=== PATIENT | female | born 1970 | race Caucasian/White ===

== ENCOUNTER → 2016-05-02 | Outpatient (REF) | payer BC ==
[~2016-05-02] MED LIST: NO HOME MEDS; TYLE325T5 PO
== END ==
LOC: M LAB REF 17:15
PROVIDERS: ATTEND Family Medicine
DX: Z12.4 Encounter for screening for malignant neoplasm of cervix (principal)

== ENCOUNTER → 2016-05-24 | Outpatient (CLI) | payer BC | LOC: M WUC 09:20 | PROVIDERS: ATTEND Family Medicine | DX: Z13.220 Encounter for screening for lipoid disorders (principal) ==

== ENCOUNTER → 2017-01-03 | Outpatient (CLI) | payer BC ==
[~2017-01-03] MED LIST changes: +CIPR-249 PO; +CYMB1CAP4 PO; +ZOFR4TAB3 PO
[2017-01-03 14:00] LABS: FREE T4 1.07 NG/DL (0.76-1.46)
== END ==
LOC: M WUC 08:30
PROVIDERS: ATTEND Family Medicine
DX: E55.9 Vitamin D deficiency, unspecified (principal); F32.1 Major depressive disorder, single episode, moderate

== ENCOUNTER 2017-02-10 06:03 | Emergency (ER) | payer BC ==
[~2017-02-10] VITALS: Ht 167.6 cm; Wt 77.3 kg
[~2017-02-10 06:03] MED LIST changes: -CIPR-249 PO; -CYMB1CAP4 PO; -ZOFR4TAB3 PO
[2017-02-10] MEDS ORDERED: CYMB1CAP4 PO (06:13)
[2017-02-10] MEDS ORDERED: NS 1,000 ML IV ONE ×2 (06:30→07:30)
[2017-02-10] MEDS ORDERED: DICYCLOMINE 10 MG CAP PO ONE (06:30)
[2017-02-10 06:49] LABS: BASO # 0.1 10^3/uL (0.0-0.2); BASO % 0.6 % (0.0-1.0); EOS # 0.1 10^3/uL (0.0-0.50); EOS % 0.6 % (0.0-3.0); IMMATURE GRANULOCYTE % 2.2 % (0-0); LYMPH # 1.4 10^3/uL (1.5-4.5); LYMPH % 14.2 % (24.0-44.0); MEAN CORPUSCULAR HEMOGLOBIN 28.1 pg (27.0-33.0); MEAN CORPUSCULAR HGB CONC 34.8 g/dl (32.0-36.5); MEAN CORPUSCULAR VOLUME 80.8 fl (80.0-96.0); MONO % 9.7 % (0.0-5.0); NEUTROPHILS # 7.2 10^3/uL (1.8-7.7); NEUTROPHILS % 72.7 % (36.0-66.0); PLATELET COUNT, AUTOMATED 306 10^3/uL (150-450); RED CELL DISTRIBUTION WIDTH 12.8 % (11.5-14.5); WHITE BLOOD COUNT 9.9 10^3/uL (4.0-10.0)
[2017-02-10 06:57] LABS: ALBUMIN 3.7 GM/DL (3.2-5.2); ALBUMIN/GLOBULIN RATIO 0.69 (1.00-1.93); ALKALINE PHOSPHATASE 91 U/L (45-117); ALT/SGPT 54 U/L (12-78); AMYLASE 36 U/L (25-115); ANION GAP 9 MEQ/L (8-16); AST/SGOT 28 U/L (7-37); BILIRUBIN,DIRECT 0.2 MG/DL (0.0-0.2); BILIRUBIN,TOTAL 0.8 MG/DL (0.2-1.0); BLOOD UREA NITROGEN 18 MG/DL (7-18); CALCIUM LEVEL 9.8 MG/DL (8.5-10.1); CARBON DIOXIDE LEVEL 25 MEQ/L (21-32); CHLORIDE LEVEL 101 MEQ/L (98-107); CREATININE FOR GFR 0.96 MG/DL (0.55-1.02); GLOMERULAR FILTRATION RATE > 60.0 (>58); GLUCOSE, FASTING 105 MG/DL (70-105); POTASSIUM SERUM 2.6 MEQ/L (3.5-5.1); SODIUM LEVEL 135 MEQ/L (136-145); TOTAL PROTEIN 9.1 GM/DL (6.4-8.2)
[2017-02-10] MEDS ORDERED: KCL 10MEQ IN 100ML SWI (KRUN) 10 MEQ in APPROPRIATE DILUENT 1 EA IV ONE ×2 (07:15)
[2017-02-10] MEDS ORDERED: POTASSIUM CHLORIDE 10 MEQ SR TABLET PO ONE (07:15)
[2017-02-10] MEDS ORDERED: KETOROLAC 30 MG/ML VIAL (J1885) IV ONE (07:30)
[2017-02-10] MEDS ORDERED: CIPR-249 PO (08:25)
[2017-02-10 09:09] VITALS: BP 129/72
[2017-02-10 10:10] LABS: ANION GAP 7 MEQ/L (8-16); BLOOD UREA NITROGEN 14 MG/DL (7-18); CALCIUM LEVEL 8.1 MG/DL (8.5-10.1); CARBON DIOXIDE LEVEL 25 MEQ/L (21-32); CHLORIDE LEVEL 109 MEQ/L (98-107); CREATININE FOR GFR 0.75 MG/DL (0.55-1.02); GLOMERULAR FILTRATION RATE > 60.0 (>58); GLUCOSE, FASTING 90 MG/DL (70-105); POTASSIUM SERUM 3.4 MEQ/L (3.5-5.1); SODIUM LEVEL 141 MEQ/L (136-145)
[2017-02-10] MEDS ORDERED: ZOFR4TAB3 PO (10:17)
== END 2017-02-10 10:30 | disposition home or self-care (01) ==
LOC: M ED 06:03
DX: A02.9 Salmonella infection, unspecified (principal); R19.7 Diarrhea, unspecified; F33.9 Major depressive disorder, recurrent, unspecified; Z79.899 Other long term (current) drug therapy

== ENCOUNTER → 2017-07-03 | Outpatient (CLI) | payer BC ==
[2017-07-03 09:52] LABS: BASO % 0.5 % (0.0-1.0); EOS # 0.2 10^3/uL (0.0-0.50); EOS % 2.5 % (0.0-3.0); HEMOGLOBIN 13.5 g/dl (12.0-15.5); IMMATURE GRANULOCYTE % 0.5 % (0-3.0); LYMPH # 2.7 10^3/uL (1.5-4.5); LYMPH % 45.3 % (24.0-44.0); MEAN CORPUSCULAR HEMOGLOBIN 28.4 pg (27.0-33.0); MEAN CORPUSCULAR HGB CONC 32.9 g/dl (32.0-36.5); MEAN CORPUSCULAR VOLUME 86.3 fl (80.0-96.0); MONO # 0.4 10^3/uL (0.0-0.8); MONO % 6.9 % (0.0-5.0); NEUTROPHILS # 2.7 10^3/uL (1.8-7.7); NEUTROPHILS % 44.3 % (36.0-66.0); PLATELET COUNT, AUTOMATED 276 10^3/uL (150-450); RED BLOOD COUNT 4.75 10^6/uL (4.00-5.40); RED CELL DISTRIBUTION WIDTH 12.8 % (11.5-14.5); WHITE BLOOD COUNT 6.1 10^3/uL (4.0-10.0)
[2017-07-03 10:19] LABS: ALBUMIN 3.9 GM/DL (3.2-5.2); ALBUMIN/GLOBULIN RATIO 1.15 (1.00-1.93); ALKALINE PHOSPHATASE 79 U/L (45-117); ALT/SGPT 28 U/L (12-78); ANION GAP 5 MEQ/L (8-16); AST/SGOT 15 U/L (7-37); BILIRUBIN,TOTAL 1.5 MG/DL (0.2-1.0); BLOOD UREA NITROGEN 13 MG/DL (7-18); CALCIUM LEVEL 8.8 MG/DL (8.5-10.1); CARBON DIOXIDE LEVEL 29 MEQ/L (21-32); CHLORIDE LEVEL 106 MEQ/L (98-107); CHOLESTEROL LEVEL 214 MG/DL (<200); CHOLESTEROL RISK RATIO 2.276 (<5); CREATININE FOR GFR 0.68 MG/DL (0.55-1.30); FREE T4 1.17 NG/DL (0.76-1.46); GLOMERULAR FILTRATION RATE > 60.0 (>58); GLUCOSE, FASTING 69 MG/DL (70-100); HDL CHOLESTEROL 94 MG/DL (>40); LDL CHOLESTEROL 108.4 MG/DL (<100); NON-HDL-C 120 MG/DL; POTASSIUM SERUM 4.8 MEQ/L (3.5-5.1); SODIUM LEVEL 140 MEQ/L (136-145); TOTAL PROTEIN 7.3 GM/DL (6.4-8.2); TRIGLYCERIDES LEVEL 58 MG/DL (<150)
[2017-07-03 11:10] LABS: TOTAL 25(OH) VITAMIN D 34.5 NG/ML (30.0-100.0)
== END ==
LOC: M WUC 08:22
DX: E55.9 Vitamin D deficiency, unspecified (principal); Z13.220 Encounter for screening for lipoid disorders; Z13.29 Encounter for screening for other suspected endocrine disorder; Z13.0 Encounter for screening for diseases of the blood and blood-forming organs and certain disorders involving the immune mechanism
CPT/HCPCS: 84443

== ENCOUNTER → 2020-03-07 | Outpatient (CLI) | payer SELFPAY ==
[~2020-03-07] MED LIST changes: +CIPR-249 PO; +CYMB1CAP4 PO; +ZOFR4TAB14 PO
== END ==
LOC: M LABSMTC 15:26
PROVIDERS: ATTEND Pediatrics
DX: Z11.59 Encounter for screening for other viral diseases (principal)

== ENCOUNTER 2020-09-07 17:08 | Emergency (ER) | payer BC, SELFPAY ==
[~2020-09-07] VITALS: Ht 167.6 cm; Wt 86.8 kg
[2020-09-07] MEDS ORDERED: FLUC150T PO (18:18)
[2020-09-07] MEDS ORDERED: MYCO15CR TOP (18:18)
[2020-09-07] MEDS ORDERED: NORCO, ANEXSIA 5/325MG TABLET (HYDROcodone/ACETAMINOPHEN) PO ONE (18:25)
[2020-09-07] MEDS ORDERED: VALA1TAB5 PO (18:37)
[2020-09-07] MEDS ORDERED: HYDR-4571 PO (18:37)
[2020-09-07 19:07] VITALS: BP 131/81
[2020-09-07 20:25] LABS: HEPATITIS B SURFACE ANTIBODY NEGATIVE (POSITIVE); HEPATITIS B SURFACE ANTIGEN NEGATIVE (NEGATIVE); HEPATITIS C VIRUS ABY INDEX < 0.0 INDEX (<0.8); HIV 1&2 SCREEN CENTAUR NEGATIVE (NEGATIVE)
== END 2020-09-07 19:46 | disposition home or self-care (01) ==
LOC: M ED 17:08
DX: A60.09 Herpesviral infection of other urogenital tract (principal); F32.9 Major depressive disorder, single episode, unspecified

== ENCOUNTER → 2021-03-03 | Outpatient (CLI) | payer BC ==
[~2021-03-03] MED LIST changes: +FLUC150T PO; +HYDR-4571 PO; +MYCO15CR TOP; +VALA1TAB5 PO
== END ==
LOC: M LABSMTC 09:10
PROVIDERS: ATTEND Anesthesiology
DX: Z01.812 Encounter for preprocedural laboratory examination (principal); Z20.822 Contact with and (suspected) exposure to COVID-19

== ENCOUNTER 2021-03-08 08:23 | Day surgery (SDC) | payer BC ==
[~2021-03-08] VITALS: Ht 167.6 cm; Wt 89.7 kg
[~2021-03-08 08:23] MED LIST changes: +NS 1,000 ML IV ONE
--- OUTSIDE RECORDS SUMMARY | 2021-03-08 08:26 | CCD | Continuity of Care Document ---
Author Author Addie LORENZ PA Organization Unknown Address [address] [facility], [address] [place] [address] Phone [phone] Care Team Providers Care Beamer Helper Name Role Phone AUTM Unavailable AUTM Unavailable Latasha MontgomeryO. AUTM [phone] Problems Active Problems Provider Date Gallbladder calculus with acute cholecystitis and no o bstruction Danilo Bruner M.D. Onset: 05/27/2012 Social History Type Date Description Comments Sex Female ETOH Use Occasionally consumes alcohol Tobacco Use Start: Unknown Non Smoker Recreational Drug Use Denies Drug Use Smoking Status Reviewed: 01/07/20 Non Smoker Allergies, Adverse Reactions, Alerts Description No Known Drug Allergies Medications Description No Active Medications Immunizations Description No Information Available Vital Signs Date Vital Result Comment 12/28/2020 10:52am BP Systolic 136 mmHg BP Diastolic 84 mmHg Body Temperature 98.2 F Height 66 inches 5'6" Weight 200.25 lb BMI (Body Mass Index) 32.3 kg/m2 [place] Body Weight 130 lb Weight 90.833 kg BSA (Body Surface Area) 2.00 m2 01/07/2020 10:41am BP Systolic 136 mmHg BP Diastolic 84 mmHg Heart Rate 80 /min Respiratory Rate 14 /min Body Temperature 97.2 F Height 66 inches 5'6" Weight 174.00 lb BMI (Body Mass Index) 28.1 kg/m2 [place] Body Weight 130 lb Weight 78.926 kg BSA (Body Surface Area) 1.88 m2 Results Description No Information Available Procedures Description No Information Available Medical Devices Description No Information Available Encounters Description No Information Available Assessments Description No Information Available Plan of Treatment No Information Available Functional Status Description No Information Available Mental Status Description No Information Available Referrals Refer to Reason for Referral Status Appt Date Juma Epperson JR, MD SCHED COLONOSCOPY Scheduled [address] [address] [phone]
--- OUTSIDE RECORDS SUMMARY | 2021-03-08 08:26 | CCD | Continuity of Care Document ---
Author Author Addie LORENZ PA Organization Unknown Address [address] [facility], [address] [place] [address] Phone [phone] Care Team Providers Care Strategic Advisor Name Role Phone AUTM Unavailable AUTM Unavailable Latasha MontgomeryO. AUTM Problems Active Problems Provider Date Gallbladder calculus with acute cholecystitis and no o bstruction Danilo Bruner M.D. Onset: 05/27/2012 Social History Type Date Description Comments Sex Female ETOH Use Occasionally consumes alcohol Tobacco Use Start: Unknown Non Smoker Recreational Drug Use Denies Drug Use Smoking Status Reviewed: 01/07/20 Non Smoker Allergies and adverse reactions Description No Known Drug Allergies Medications Description No Active Medications Immunizations Description No Information Available Vital Signs Date Vital Result Comment 12/28/2020 10:52am BP Systolic 136 mmHg BP Diastolic 84 mmHg Body Temperature 98.2 F Height 66 inches 5'6" Weight 200.25 lb BMI (Body Mass Index) 32.3 kg/m2 [place] Body Weight 130 lb Weight 90.833 kg BSA (Body Surface Area) 2.00 m2 01/07/2020 10:41am BP Systolic 136 mmHg BP Diastolic 84 mmHg Heart Rate 80 /min Respiratory Rate 14 /min Body Temperature 97.2 F Height 66 inches 5'6" Weight 174.00 lb BMI (Body Mass Index) 28.1 kg/m2 [place] Body Weight 130 lb Weight 78.926 kg BSA (Body Surface Area) 1.88 m2 Results Description No Information Available Procedures Date Code Description Status 12/28/2020 60101 Office/Outpatient New [facility] 15- 29 Minutes Completed Medical Devices Description No Information Available Encounters Type Date Location Provider Dx Diagnosis Office Visit 12/28/2020 11:15a [facility] MARIE Malagon Z12.11 Encounter for screening for malignant ne oplasm of colon Assessments Date Code Description Provider 12/28/2020 Z12.11 Encounter for screening for nusrat gnant neoplasm of colon MARIE Ward Plan of Treatment Future Appointment(s):* 03/19/2021 9:00 am - MARIE Ward at [facility] * 03/08/2021 8:00 am - Juma Epperson JR, MD at [facility] 12/28/2020 - MARIE Ward* Z12.11 Encounter for screening for malignant neoplasm of colon Functional Status Description No Information Available Mental Status Description No Information Available Referrals Refer to Dr Reason for Referral Status Appt Date Juma Epperson JR, MD SCHED COLONOSCOPY Scheduled [address] [place] [address] [phone]
--- OUTSIDE RECORDS SUMMARY | 2021-03-08 08:26 | CCD | Continuity of Care Document ---
Author Author Addie MONTGOMERY D.O. Organization Unknown Address [address] [place] [address] Phone [phone] Care Team Providers Care Loan Servicing Representative Name Role Phone Latasha Montgomery D.O. AUTM [phone] Ioana Gallardo DO AUTM [phone] Juma Epperson M.D. AUTM [phone] Problems Active Problems Provider Date Moderate major depression, single episode Latasha dias D.O. Onset: 03/18/2016 Aphasia Latasha Montgomery D.O. Onset: 2015 Vitamin D deficiency Latasha Montgomery D.O. Onset: 04/18 Screening mammography Latasha Montgomery D.O. Onset: 03/31 Obesity Latasha Montgomery D.O. Onset: 2016 Body mass index 30+ - obesity Latasha Montgomery D.O. Ons et: 04/18/2016 Hyperlipidemia screening Latasha Montgomery D.O. Onset: 0 04/18/2016 Gynecologic examination Latasha Montgomery D.O. Onset: Active or passive immunization Latasha Montgomery D.O. On set: 05/02/2016 Overweight Latasha Montgomery D.O. Onset: 2016 Body mass index 25-29 - overweight Yordy Sellers Onset: 07/25/2016 Social History Type Date Description Comments Sex Unknown ETOH Use Denies alcohol use Tobacco Use Start: Unknown Patient has never smoked Recreational Drug Use Denies Drug Use Smoking Status Reviewed: 12/18/20 Patient has never smoked Exercise Type/Frequency Does not exercise Sun Exposure Does not use sunscreen Seat Belt/Car Seat Always uses seat belt Allergies, Adverse Reactions, Alerts Description No Known Drug Allergies Medications Active Medications SIG Qnty Indications Ordering Provide r Date Valacyclovir HCL 1gm Tablets take 1 tablet by mouth twice daily for 1 day 12tabs Katia RojasOLori History Medications Eq Lidocaine Pain Relieving/Max Strength 4% Cream apply thin layer to topical area of vagi na every 8 hours as needed for pain 76.500gm Latasha Montgomery D.O. 09/07 - 09/13/2020 Fluconazole 150mg Tablets 1 tablet then repeat in 3 days if symptoms not improved 2tabs B37.3 Katia SellersOLori 09/05/2020 - 09/13/2020 Nystatin-Triamcinolone 110249-6.1Unit/GM-% Cream apply thin layer topically externally on rash vaginal area twice daily for no more than 7 days 30gm B37.3 Katia SellersO. 0 09/05/2020 - 09/13/2020 Medications Administered in Office Medication SIG Qnty Indications Ordering Provider Date Immunization Administration Single Or Co mbination Injection Karla Sellers 05/02/2016 Immunizations CPT Code Status Date Vaccine Lot # [id number] Given 05/02/2016 Influenza Virus Vaccine, Quadrivalent, Split, Preservative Free [id number] Vital Signs Date Vital Result Comment 12/18/2020 2:31pm BP Systolic 138 mmHg BP Diastolic 88 mmHg Height 64.7 inches 5'4.70" Weight 200.38 lb BMI (Body Mass Index) 33.7 kg/m2 Heart Rate 76 /min Respiratory Rate 14 /min Body Temperature 98.0 F O2 % BldC Oximetry 98 % [place] Body Weight 120 lb 09/13/2020 2:42pm BP Systolic 110 mmHg BP Diastolic 74 mmHg Height 64.7 inches 5'4.70" Weight 193.00 lb BMI (Body Mass Index) 32.4 kg/m2 Heart Rate 64 /min Respiratory Rate 20 /min Body Temperature 98.2 F O2 % BldC Oximetry 97 % [place] Body Weight 120 lb Results Test Acquired Date Facility Test Result H/L Range Note Thinprep Tis Pap And HPV Mrna E6/E7, Chlamydia/N.G [facility] Report Status: DNR Normal Clinical Information: (SEE NOTE) Normal 1 LMP: (SEE NOTE) Normal 2 Prev. Pap: (SEE NOTE) Normal 3 Prev. BX: (SEE NOTE) Normal 4 Source: (SEE NOTE) Normal 5 Statement Of Adequacy: (SEE NOTE) Normal 6 General Categorization: DNR Normal Interpretation/Result: (SEE NOTE) Normal 7 Infection: DNR Normal Comment: (SEE NOTE) Normal 8 Principal Clerk: (SEE NOTE) Normal 9 Review Principal Clerk: DNR Normal Pathologist: DNR Normal Comment (SEE NOTE) 10 HPV mRNA E6/E7 Not Detected Normal Not Detected 11 Chlamydia Trachomatis Rna, Tma, Urogenital NOT DETECTED Normal Not Detected Neisseria Gonorrhoeae Rna, Tma, Urogenital NOT DETECTED Normal Not Detected Comment (SEE NOTE) 12 Laboratory test finding 12/18/2020 [facility] Enhanced PDF Report [id number] SEE IMAGE Ua W/ Reflex To Culture 09/07/2020 [facility] Outpatient T hector (Registration) [address] [place] [address] [phone] Appearance, Urine RFX HAZY Normal Clear Color, Urine RFX YELLOW Normal Yellow PH,Urine RFX 5.0 units Normal 5.0-9.0 Specific [place] Ur Auto RFX 1.016 Normal 1.002-1.035 Protein, Urine Auto RFX NEGATIVE mg/dL Normal Negative Glucose, Urine (Ua) Auto RFX NEGATIVE mg/dL Normal Negative Ketone, Urine Auto RFX NEGATIVE mg/dL Normal Negative Urobilinogen, Urine Auto RFX 0.2 mg/dL Normal 0.0-2.0 Bilirubin, Urine Auto RFX NEGATIVE Normal Negative Nitrite, Urine Auto RFX NEGATIVE Normal Negative Leukocyte Esterase Ur Auto RFX 2+ High Negative Blood, Urine Blood RFX 1+ High Negative WBC, Urine Auto RFX 6 /HPF High 0-3 RBC, Urine Auto RFX 2 /HPF Normal 0-3 Bacteria, Urine Auto RFX 1+ High Negative Squam Epithelial Cell Ur Aurfx 1 /HPF Normal 0-6 Hyaline Cast, Urine Auto RFX 0 /LPF Normal 0-1 Reflex Urine Culture 09/07/2020 [facility] Outpatient Test ing (Registration) [address] [place] [address] [phone] Reflex Urine Culture FULL REPORT IN L <SEE NOTE> Norm al 13 Laboratory test finding 09/07/2020 [facility] Outpatient T esting (Registration) [address] [place] [address] [phone] Trichomonas Vaginalis Amp NOT DETECTED Normal Neg ative 14 Chlamydia/GC Probe 09/07/2020 [facility] Outpatient Testi ng (Registration) [address] [place] [address] [phone] Chlamydia Dna Probe Negative Normal Negative GC Dna Probe Negative Normal Negative 15 Laboratory test finding 09/07/2020 [facility] Outpatient T esting (Registration) [address] [place] [phone] Hepatitis C Virus Lorelei Index < 0.0 INDEX Normal <0. 8 Hepatitis B Surface Antigen NEGATIVE Normal Negative Hepatitis B Surface Antibody NEGATIVE Normal Positive Syphilis NONREACTIVE Normal Nonreactive HIV 1&2 Screen [place] NEGATIVE Normal Negative 16 HSV 1/2 By PCR 09/07/2020 [facility] Outpatient Testi ng (Registration) [address] [place] [address] [phone] HSV-1 Dna Negative Normal Negative HSV-2 Dna Negative Normal Negative 17 Wet [place] Trichomonas 09/07/2020 [facility] Outpatient Nela ting (Registration) [address] [place] [address] [phone] Wet Prep Reference Interv <SEE NOTE> 18 Laboratory test finding 09/07/2020 [facility] Outpatient T esting (Registration) [address] [place] [address] [phone] Viral Culture Positive for Her <SEE NOTE> 19 1 None given 2 None given 3 None given 4 None given 5 Cervix, Endocervix 6 Satisfactory for evaluation. Endocervical/transformation zone component present. 7 Negative for intraepithelial lesion or malignancy. 8 This Pap test has been evalu ated with computer assisted technology. 9 BH, CT(ASCP) CT screening lo cation: [employer] [place], [address], [place] [address]. 10 EXPLANATORY NOTE: The Pap is a screening test for cervical cancer. It is not a diagnostic test and is subject to false negative and false positive results. It is most reliable when a satisfactory sample, regularly obtained, is submitted with relevant clinical findings and history, and when the Pap result is evaluated along with historic and current clinical information. 11 Methodology: Harness Maker-M ediated Amplification This assay detects E6/E7 viral messenger RNA (mRNA) from 14 high-risk HPV types (16,18,31,33,35,39,45,51,52,56,58,59,66,68). The analytical performance characteristics of this assay have been determined by [employer] The modifications have not been cleared or approved by the FDA. This assay has been validated pursuant to the CLIA regulations and is used for clinical purposes. For additional information, please refer to http://Talkbits.NetScientific/faq/JZS262e0 (This link if provided for information/ educational purposes only.) 12 The analytical performance c haracteristics of this assay, when used to test SurePath(TM) specimens have been determined by [employer] The modifications have not been cleared or approved by the FDA. This assay has been validated pursuant to the CLIA regulations and is used for clinical purposes. For additional information, please refer to https://Talkbits.NetScientific/faq/QFT633 (This link is being provided for informa tion/ educational purposes only.) 13 FULL REPORT IN LAB NOTES (eC W and [employer]). NO GROWTH CLINICAL SIGNIFICANCE 1 ORGANISM 14 A negative test result does not exclude the possibility of infection because test results may be affected by improper specimen collection, technical error, sample mix-up, or because the number of organisms in the sample is below the limit of detection of the test. 15 Performed at: - [facility] [id number] Construction Inspector: Isabel Vasquez MD, Phone: [phone] 16 This assay was performed uti lizing a chemiluminescent principle technique for the simultaneous qualitative detection of HIV-1 p24 antigen & antibodies to HIV-1 (including group O) & HIV-2 using the [employer] system. The estimated 95% confidence interval for sensitivity of this antigen/antibody combination assay for HIV-1&2 antibodies is 99.7-100% and HIV p24 antigen is 89.4-99.9%. The estimated 95% confidence interval for specificity of this antigen/antibody combination in low risk populations is 99.6-99.8%. 17 This test was developed and its performance characteristics determined by [employer]. It has not been cleared or approved by the U.S. Food and Drug Administration. The FDA has determined that such clearance or approval is not necessary. This test is used for clinical purposes. It should not be regarded as investigational or research. Performed at: [address] [id number] Construction Inspector: Ann Romero MD, Phone: [phone] Reference Interval: Negative for Clue Cells, Trichomonas vaginalis or Yeast like organisms. WET PREP RESULT MANY EPITHELIAL CELLS PRESENT MANY LONG RODS PRESENT FEW WBC 19 Positive for Herpes simplex virus type-1. Typing was confirmed by monoclonal antibody microscopic immunofluorescence. Performed at: [address] [id number] Construction Inspector: Ann Romero MD, Phone: [phone] Procedures Date Code Description Status 12/18/2020 38653 Preventive Visit Est 40-64 Yrs C ompleted 09/13/2020 02140 Office/Outpatient Established Lo w MDM 20-29 Min Completed 09/05/2020 06766 Office/Outpatient Established Lo w MDM 20-29 Min Completed Medical Devices Description No Information Available Encounters Type Date Location Provider Dx Diagnosis Office Visit 12/18/2020 2:30p [facility] Katia LaraOLori Z01.419 Encntr for adult care manager exam (general ) (routine) w/o abn findings Z11.3 Encntr screen for infections w sexl mode of transmiss Z12.31 Encntr screen mammogram for malignant neoplasm of breast Z12.11 Encounter for screening for malignant neoplasm of colon 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 B37.3 Candidiasis of vulva and vag gómez Assessments Date Code Description Provider 12/18/2020 Z01.419 Encounter for gyneco logical examination (general) (routine) without abnormal findings Latasha Montgomery D.O. 12/18/2020 Z11.3 Encounter for screen ing for infections with a predominantly sexual mode of transmission Latasha Montgomery D.O. 12/18/2020 Z12.31 Encounter for screen ing mammogram for malignant neoplasm of breast Latasha Montgomery D.O. 12/18/2020 Z12.11 Encounter for screening for nusrat gnant neoplasm of colon Latasha Montgomery D.O. 12/18/2020 A60.00 Herpesviral infection of urogeni lisa system, unspecified Latasha Montgomery D.O. 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 09/05/2020 B37.3 Candidiasis of vulva and vagina Latasha Montgomery D.O. Plan of Treatment Future Appointment(s):* 06/18/2021 3:30 pm - Latasha Montgomery D.O. at [facility] Functional Status Description No Information Available Mental Status Description No Information Available Referrals Refer to Dr Reason for Referral Status Appt Date Juma Epperson M.D. This is a 50 year old female who is due for screening colonoscopy. Please evaluate and treat. Sent [address] [address] [phone]
--- OUTSIDE RECORDS SUMMARY | 2021-03-08 08:26 | CCD | Continuity of Care Document ---
Author Author Addie MONTGOMERY D.O. Organization Unknown Address [address] [place] [address] Phone [phone] Care Team Providers Care Mountain Guide Name Role Phone Latasha Montgomery D.O. AUTM Ioana Gallardo AUTM [phone] Problems Active Problems Provider Date Moderate major depression, single episode Latasah dias D.O. Onset: 03/18/2016 Aphasia Latasha Montgomery [...] 8 hours as needed for pain 76.500gm Katia SellersOLori 09/07 - 09/13/2020 Fluconazole 150mg Tablets 1 tablet then repeat in 3 days if symptoms not improved 2tabs B37.3 Katia SellersO. 09/05/2020 - 09/13/2020 Nystatin-Triamcinolone 039953-2.1Unit/GM-% Cream apply thin layer topically externally on rash vaginal area twice daily for no more than 7 days 30gm B37.3 Latasha Montgomery D.O. 0 09/05/2020 - 09/13/2020 Medications Administered in Office Medication SIG Qnty Indications Ordering Provider Date Immunization Administration Single Or Co mbination Injection Karla SellersOLori 05/02/2016 Immunizations CPT Code Status Date Vaccine Lot # [id number] Given 05/02/2016 Influenza Virus Vaccine, Quadrivalent, Split, Preservative Free [id number] Vital Signs Date Vital Result Comment 12/18/2020 2:31pm BP Systolic 138 mmHg BP Diastolic 88 mmHg Height 64.7 inches 5'4.70" Weight 200.38 lb BMI (Body Mass Index) 33.7 kg/m2 Heart Rate 76 /min Respiratory Rate 14 /min Body Temperature 98.0 F O2 % BldC Oximetry 98 % [place] Body Weight 120 lb 09/13/2020 2:42pm BP Systolic 110 mmHg BP Diastolic 74 mmHg Height 64.7 inches 5'4.70" Weight 193.00 lb BMI (Body Mass Index) 32.4 kg/m2 Heart Rate 64 /min Respiratory Rate 20 /min Body Temperature 98.2 F O2 % BldC Oximetry 97 % [place] Body Weight 120 lb Results Test Acquired Date Facility Test Result H/L Range Note Ua W/ Reflex To Culture 09/07/2020 [facility] Outpatient T esting (Registration) [address] [place] [address] [phone] Appearance, Urine RFX HAZY Normal Clear Color, Urine RFX YELLOW Normal Yellow PH,Urine RFX 5.0 units Normal 5.0-9.0 Specific [place] Ur Auto RFX 1.016 Normal 1.002-1.035 Protein, [...] /LPF Normal 0-1 Reflex Urine Culture 09/07/2020 [facility] Outpatient Test ing (Registration) [address] [place] [address]594 [phone] Reflex Urine Culture FULL REPORT IN L <SEE NOTE> Norm al 1 Laboratory test finding 09/07/2020 [facility] Outpatient T esting (Registration) [address] [place] [address]90 [phone] Trichomonas Vaginalis Amp NOT DETECTED Normal Neg ative 2 Chlamydia/GC Probe 09/07/2020 [facility] Outpatient Testi ng (Registration) [address] [place] [address] [phone] Chlamydia Dna Probe Negative Normal Negative GC Dna Probe Negative Normal Negative 3 Laboratory test finding 09/07/2020 [facility] Outpatient T esting (Registration) [address] [place] [address] 11971 [phone] Hepatitis C Virus Lorelei Index < 0.0 INDEX Normal <0. 8 Hepatitis B Surface Antigen NEGATIVE Normal Negative Hepatitis B Surface Antibody NEGATIVE Normal Positive Syphilis NONREACTIVE Normal Nonreactive HIV 1&2 Screen Centaur NEGATIVE Normal Negative 4 HSV 1/2 By PCR 09/07/2020 [facility] Outpatient Testi ng (Registration) [address] [place], [place] [id number] [phone] HSV-1 Dna Negative Normal Negative HSV-2 Dna Negative Normal Negative 5 Wet [place] Trichomonas 09/07/2020 [facility] Outpatient Nela ting (Registration) [address] [place] [address] [phone] Wet Prep Reference Interv <SEE NOTE> 6 Laboratory test finding 09/07/2020 [facility] Outpatient T esting (Registration) [address] [place] [address] [phone] Viral Culture Positive for Her <SEE NOTE> 7 1 FULL REPORT IN LAB NOTES (eC W and Medent). NO GROWTH CLINICAL SIGNIFICANCE 1 ORGANISM 2 A negative test result does not exclude the possibility of infection because test results may be affected by improper specimen collection, technical error, sample mix-up, or because the number of organisms in the sample is below the limit of detection of the test. 3 Performed at: [address] [id number] Assistant Professor Of Biochemistry: Isabel Vasquez MD, Phone: [phone] This assay was performed uti lizing a chemiluminescent principle technique for the simultaneous qualitative detection of HIV-1 p24 antigen & antibodies to HIV-1 (including group O) & HIV-2 using the Intersect ENTaur XP system. The estimated 95% confidence interval for sensitivity of this antigen/antibody combination assay for HIV-1&2 antibodies is 99.7-100% and HIV p24 antigen is 89.4-99.9%. The estimated 95% confidence interval for specificity of this antigen/antibody combination in low risk populations is 99.6-99.8%. 5 This test was developed and its performance characteristics determined by [employer]. It has not been cleared or approved by the U.S. Food and Drug Administration. The FDA has determined that such clearance or approval is not necessary. This test is used for clinical purposes. It should not be regarded as investigational or research. Performed at: [address] [id number] Assistant Professor Of Biochemistry: Ann Romero MD, Phone: [phone] Reference Interval: Negative for Clue Cells, Trichomonas vaginalis or Yeast like organisms. WET PREP RESULT MANY EPITHELIAL CELLS PRESENT MANY LONG RODS PRESENT FEW WBC 7 Positive for Herpes simplex virus type-1. Typing was confirmed by monoclonal antibody microscopic immunofluorescence. Performed at: [address] [id number] Assistant Professor Of Biochemistry: Ann Romero MD, Phone: [phone] Procedures Date Code Description Status 12/18/2020 07917 Preventive Visit Est 40-64 Yrs C ompleted 09/13/2020 50220 Office/Outpatient Established Lo w MDM 20-29 Min Completed 09/05/2020 33992 Office/Outpatient Established Lo w MDM 20-29 Min Completed Medical Devices Description No Information Available Encounters Type Date Location Provider Dx Diagnosis Office Visit 12/18/2020 2:30p [facility] Clyde Montgomery D.O. 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 Plan of Treatment Future Appointment(s):* 06/18/2021 3:30 pm - Latasha Montgomery D.O. at [facility] Functional Status Description No Information Available Mental Status Description No Information Available Referrals Refer to Reason for Referral Status Appt Date Juma Epperson M.D. This is a 50 year old female who is due for screening colonoscopy. Please evaluate and treat. Created [address] [id number] [phone]
--- OUTSIDE RECORDS SUMMARY | 2021-03-08 08:26 | CCD | Continuity of Care Document ---
Author Author Addie MONTGOMERY D.O. Organization Unknown Address [address] [place] [address] Phone [phone] Care Team Providers Care Biological Photographer Name Role Phone Latasha Montgomery D.O. AUTM Ioana Gallardo AUTM [phone] Problems Active Problems Provider Date Moderate major [...] B37.3 Katia SellersO. 09/05/2020 - 09/13/2020 Nystatin-Triamcinolone 882762-2.1Unit/GM-% Cream apply thin layer topically externally on rash vaginal area twice daily for no more than 7 days 30gm B37.3 Latasha Montgomery D.O. 0 09/05/2020 - 09/13/2020 Medications Administered in Office Medication SIG Qnty Indications Ordering Provider Date Immunization Administration Single Or Co mbination Injection Karla SellersOLori 05/02/2016 Immunizations CPT Code Status Date Vaccine Lot # [id number] Given 05/02/2016 Influenza Virus Vaccine, Quadrivalent, Split, Preservative Free [id number] Vital Signs Date Vital Result Comment 12/18/2020 2:31pm BP Systolic 138 mmHg BP Diastolic 88 mmHg Height 64.7 inches 5'4.70" Weight 200.38 lb BMI (Body Mass Index) 33.7 kg/m2 Heart Rate 76 /min Respiratory Rate 14 /min Body Temperature 98.0 F O2 % BldC Oximetry 98 % [place] Body Weight 120 lb 09/13/2020 2:42pm BP Systolic 110 mmHg BP Diastolic 74 mmHg Height 64.7 inches 5'4.70" Weight 193.00 lb BMI (Body Mass Index) 32.4 kg/m2 Heart Rate 64 /min Respiratory Rate 20 /min Body Temperature 98.2 F O2 % BldC Oximetry 97 % [place] Body Weight 120 lb Results Test Acquired Date Facility Test Result H/L Range Note Ua W/ Reflex To Culture 09/07/2020 [facility] Outpatient T esting (Registration) [address] [place] [address] 15516 [phone] Appearance, Urine RFX HAZY Normal Clear Color, Urine RFX YELLOW Normal Yellow PH,Urine RFX 5.0 units Normal 5.0-9.0 Specific [place] Ur Auto RFX 1.016 Normal 1.002-1.035 Protein, [...] /LPF Normal 0-1 Reflex Urine Culture 09/07/2020 [facility] Outpatient Test ing (Registration) [address] [place] [address] [phone] Reflex Urine Culture FULL REPORT IN L <SEE NOTE> Norm al 1 Laboratory test finding 09/07/2020 [facility] Outpatient T esting (Registration) [address] [place] [address]23 [phone] Trichomonas Vaginalis Amp NOT DETECTED Normal Neg ative 2 Chlamydia/GC Probe 09/07/2020 [facility] Outpatient Testi ng (Registration) [address] [place] [address]310 [phone] Chlamydia Dna Probe Negative Normal Negative GC Dna Probe Negative Normal Negative 3 Laboratory test finding 09/07/2020 [facility] Outpatient T esting (Registration) [address] [place] [address]70 [phone] Hepatitis C Virus Lorelei Index < 0.0 INDEX Normal <0. 8 Hepatitis B Surface Antigen NEGATIVE Normal Negative Hepatitis B Surface Antibody NEGATIVE Normal Positive Syphilis NONREACTIVE Normal Nonreactive HIV 1&2 Screen Centaur NEGATIVE Normal Negative 4 HSV 1/2 By PCR 09/07/2020 [facility] Outpatient Testi ng (Registration) [address] [place], [place] [phone] HSV-1 Dna Negative Normal Negative HSV-2 Dna Negative Normal Negative 5 Wet [place] Trichomonas 09/07/2020 [facility] Outpatient Nela ting (Registration) [address] [place] [address] [phone] Wet Prep Reference Interv <SEE NOTE> 6 Laboratory test finding 09/07/2020 [facility] Outpatient T esting (Registration) [address] [place] [address] [phone] Viral Culture Positive for Her <SEE NOTE> [...] detection of the test. 3 Performed at: [address] [id number] Glaze Mixer: Isabel Vasquez MD, Phone: [phone] This assay was performed uti lizing a chemiluminescent principle technique for the simultaneous qualitative detection of HIV-1 p24 antigen & antibodies to HIV-1 (including group O) & HIV-2 using the [employer]aur XP system. The estimated 95% confidence interval for sensitivity of this antigen/antibody combination assay for HIV-1&2 antibodies is 99.7-100% and HIV p24 antigen is 89.4-99.9%. The estimated 95% confidence interval for specificity of this antigen/antibody combination in low risk populations is 99.6-99.8%. 5 This test was developed and its performance characteristics determined by [employer]. It has not been cleared or approved by the U.S. Food and Drug Administration. The FDA has determined that such clearance or approval is not necessary. This test is used for clinical purposes. It should not be regarded as investigational or research. Performed at: [address] [id number] Glaze Mixer: Ann Romero MD, Phone: [phone] Reference Interval: Negative for Clue Cells, Trichomonas vaginalis or Yeast like organisms. WET PREP RESULT MANY EPITHELIAL CELLS PRESENT MANY LONG RODS PRESENT FEW WBC 7 Positive for Herpes simplex virus type-1. Typing was confirmed by monoclonal antibody microscopic immunofluorescence. Performed at: [address] [id number] Glaze Mixer: Ann Romero MD, Phone: [phone] Procedures Date Code Description Status 12/18/2020 76525 Preventive Visit Est 40-64 Yrs C ompleted 09/13/2020 28817 Office/Outpatient Established Lo w MDM 20-29 Min Completed 09/05/2020 51979 Office/Outpatient Established Lo w MDM 20-29 Min Completed Medical Devices Description No Information Available Encounters Type Date Location Provider Dx Diagnosis Office Visit 12/18/2020 2:30p [facility] Clyde Montgomery D.O. 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 B37.3 Candidiasis [...] of urogeni lisa system, unspecified Karla Sellers.OLori 09/05/2020 B37.3 Candidiasis of vulva and vagina [...] colonoscopy. Please evaluate and treat. Created [address] [id number] [phone]
--- OUTSIDE RECORDS SUMMARY | 2021-03-08 08:27 | CCD ---
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 Name Role Phone Maring, Johnathon PA Unavailable Unavailable Maring, Johnathon PA Unavailable Unavailable Maring, Johnathon PA Unavailable Unavailable Maring, Johnathon PA Unavailable Unavailable Maring, Johnathon PA Unavailable Unavailable Maring, Johnathon PA Unavailable Unavailable Maring, Johnathon PA Unavailable Unavailable Maring, Johnathon PA Unavailable Unavailable Maring, Johnathon PA Unavailable Unavailable Maring, Johnathon PA Unavailable Unavailable Maring, Johnathon PA Unavailable Unavailable Maring, Johnathon PA Unavailable Unavailable Maring, Johnathon PA Unavailable Unavailable Maring, Johnathon PA Unavailable Unavailable Maring, Johnathon PA Unavailable Unavailable Maring, Johnathon PA Unavailable Unavailable CLEMENTE-BERONICA, JANESSA DO Unavailable Unavailable CLEMENTE-BERONICA, JANESSA DO Unavailable Unavailable CLEMENTE-BERONICA, JANESSA DO Unavailable Unavailable CLEMENTE-BERONICA, JANESSA DO Unavailable Unavailable CLEMENTE-BERONICA, JANESSA DO Unavailable Unavailable CLEMENTE-BERONICA, JANESSA DO Unavailable Unavailable CLEMENTE-BERONICA, JANESSA DO Unavailable Unavailable CLEMENTE-BERONICA, JANESSA DO Unavailable Unavailable CLEMENTE-BERONICA, JANESSA DO Unavailable Unavailable CLEMENTE-BERONICA, JANESSA DO Unavailable Unavailable CLEMENTE-BERONICA, JANESSA DO Unavailable Unavailable CLEMENTE-BERONICA, JANESSA DO Unavailable Unavailable CLEMENTE-BERONICA, JANESSA DO Unavailable Unavailable CLEMENTE-BERONICA, JANESSA DO Unavailable Unavailable CLEMENTE-BERONICA, JANESSA DO Unavailable Unavailable CLEMENTE-BERONICA, JANESSA DO Unavailable Unavailable CLEMENTE-BERONICA, JANESSA DO Unavailable Unavailable CLEMENTE-BERONICA, JANESSA DO Unavailable Unavailable CLEMENTE-BERONICA, JANESSA DO Unavailable Unavailable CLEMENTE-BERONICA, JAENSSA DO Unavailable Unavailable CLEMENTE-BERONICA, JANESSA DO Unavailable Unavailable CLEMENTE-EBRONICA, JANESSA DO Unavailable Unavailable CLEMENTE-BERONICA, JANESSA DO Unavailable Unavailable CLEMENTE-BERONICA, JANESSA DO Unavailable Unavailable CLEMENTE-BERONICA, JANESSA DO Unavailable Unavailable CLEMENTE-BERONICA, JANESSA DO Unavailable Unavailable CLEMENTE-BERONICA, JANESSA DO Unavailable Unavailable CLEMENTE-BERONICA, JANESSA DO Unavailable Unavailable CLEMENTE-BERONICA, JANESSA DO Unavailable Unavailable CLEMENTE-BERONICA, JANESSA DO Unavailable Unavailable CLEMENTE-BERONICA, JANESSA DO Unavailable Unavailable CLEMENTE-BERONICA, JANESSA DO Unavailable Unavailable CLEMENTE-BERONICA, JANESSA DO Unavailable Unavailable CLEMENTE-BERONICA, JANESSA DO Unavailable Unavailable CLEMENTE-BERONICA, JANESSA DO Unavailable Unavailable CLEMENTE-BERONICA, JANESSA DO Unavailable Unavailable CLEMENTE-BERONICA, JANESSA DO Unavailable Unavailable CLEMENTE-BERONICA, JANESSA DO Unavailable Unavailable CLEMENTE-BERNOICA, JANESSA DO Unavailable Unavailable CLEMENTE-BERONICA, JANESSA DO Unavailable Unavailable CLEMENTE-BERONICA, JANESSA DO Unavailable Unavailable CLEMENTE-BERONICA, JANESSA DO Unavailable Unavailable CLEMENTE-BERONICA, JANESSA DO Unavailable Unavailable CLEMENTE-BERONICA, JANESSA DO Unavailable Unavailable CLEMENTE-BERONICA, JANESSA DO Unavailable Unavailable CLEMENTE-BERONICA, JANESSA DO Unavailable Unavailable CLEMENTE-BERONICA, JANESSA DO Unavailable Unavailable CLEMENTE-BERONICA, JANESSA DO Unavailable Unavailable CLEMENTE-BERONICA, JANESSA DO Unavailable Unavailable CLEMENTE-BERONICA, JANESSA DO Unavailable Unavailable CLEMENTE-BERONICA, JANESSA DO Unavailable Unavailable CLEMENTE-BERONICA, JANESSA DO Unavailable Unavailable CLEMENTE-BERONICA, JANESSA DO Unavailable Unavailable CLEMENTE-BERONICA, JANESSA DO Unavailable Unavailable CLEMENTE-BERONICA, JANESSA DO Unavailable Unavailable CLEMENTE-BERONICA, JANESSA DO Unavailable Unavailable CLEMENTE-BERONICA, JANESSA DO Unavailable Unavailable CLEMENTE-BERONICA, JANESSA DO Unavailable Unavailable CLEMENTE-BERONICA, JANESSA DO Unavailable Unavailable CLEMENTE-BERONICA, JANESSA DO Unavailable Unavailable CLEMENTE-BERONICA, JANESSA DO Unavailable Unavailable CLEMENTE-BERONICA, JANESSA DO Unavailable Unavailable CLEMENTE-BERONICA, JANESSA DO Unavailable Unavailable CLEMENTE-BERONICA, JANESSA DO Unavailable Unavailable CLEMENTE-BERONICA, JANESSA DO Unavailable Unavailable CLEMENTE-BERONICA, JANESSA DO Unavailable Unavailable CLEMENTE-BERONICA, JANESSA DO Unavailable Unavailable CLEMENTE-BERONICA, JANESSA DO Unavailable Unavailable CLEMENTE-BERONICA, JANESSA DO Unavailable Unavailable CLEMENTE-BERONICA, JANESSA DO Unavailable Unavailable CLEMENTE-BERONICA, JANESSA DO Unavailable Unavailable CLEMENTE-BERONICA, JANESSA DO Unavailable Unavailable CLEMENTE-BERONICA, JANESSA DO Unavailable Unavailable CLEMENTE-BERONICA, JANESSA DO Unavailable Unavailable CLEMENTE-BERONICA, JANESSA DO Unavailable Unavailable CLEMENTE-BERONICA, JANESSA DO Unavailable Unavailable CLEMENTE-BERONICA, JANESSA DO Unavailable Unavailable CLEMENTE-BERONICA, JANESSA DO Unavailable Unavailable CLEMENTE-BERONICA, JANESSA DO Unavailable Unavailable CLEMENTE-BERONICA, JANESSA DO Unavailable Unavailable CLEMENTE-BERONICA, JANESSA DO Unavailable Unavailable CLEMENTE-BERONICA, JANESSA DO Unavailable Unavailable CLEMENTE-BERONICA, JANESSA DO Unavailable Unavailable CLEMENTE-BERONICA, JANESSA DO Unavailable Unavailable CLEMENTE-BERONICA, JANESSA DO Unavailable Unavailable CLEMENTE-BERONICA, JANESSA DO Unavailable Unavailable Weir, L Cordelia RPA Unavailable Unavailable Weir, L Cordelia RPA Unavailable Unavailable Weir, L Cordelia RPA Unavailable Unavailable Weir, L Cordelia RPA Unavailable Unavailable Weir, L Cordelia RPA Unavailable Unavailable Weir, L Cordelia RPA Unavailable Unavailable Weir, L Cordelia RPA Unavailable Unavailable Weir, L Cordelia RPA Unavailable Unavailable Weir, L Cordelia RPA Unavailable Unavailable Weir, L Cordelia RPA Unavailable Unavailable Weir, L Cordelia RPA Unavailable Unavailable Weir, L Cordelia RPA Unavailable Unavailable Weir, L Cordelia RPA Unavailable Unavailable Weir, L Cordelia RPA Unavailable Unavailable Weir, L Cordelia RPA Unavailable Unavailable Weir, L Cordelia RPA Unavailable Unavailable Weir, L Cordelia RPA Unavailable Unavailable Weir, L Cordelia RPA Unavailable Unavailable Weir, L Cordelia RPA Unavailable Unavailable Weir, L Cordelia RPA Unavailable Unavailable Weir, L Cordelia RPA Unavailable Unavailable Weir, L Cordelia RPA Unavailable Unavailable Weir, L Cordelia RPA Unavailable Unavailable Weir, L Cordelia RPA Unavailable Unavailable Weir, L Cordelia RPA Unavailable Unavailable Weir, L Cordelia RPA Unavailable Unavailable Weir, L Cordelia RPA Unavailable Unavailable Weir, L Cordelia RPA Unavailable Unavailable Weir, L Cordelia RPA Unavailable Unavailable Weir, L Cordelia RPA Unavailable Unavailable Weir, L Cordelia RPA Unavailable Unavailable Weir, L Cordelia RPA Unavailable Unavailable Re-disclosure Warning The records that you are about to access may contain information from federally-assisted alcohol or drug abuse programs. If such information is present, then the following federally mandated warning applies: This information has been disclosed to you from records protected by federal confidentiality rules (42 CFR part 2). The federal rules prohibit you from making any further disclosure of this information unless further disclosure is expressly permitted by the written consent of the person to whom it pertains or as otherwise permitted by 42 CFR part 2. A general authorization for the release of medical or other information is NOT sufficient for this purpose. The Federal rules restrict any use of the information to criminally investigate or prosecute any alcohol or drug abuse patient.The records that you are about to access may contain highly sensitive health information, the redisclosure of which is protected by Article 27-F of the [facility] Public Health law. If you continue you may have access to information: Regarding HIV / AIDS; Provided by facilities licensed or operated by the [facility] Office of Mental Health; or Provided by the [facility] Office for People With Developmental Disabilities. If such information is present, then the following [facility] mandated warning applies: This information has been disclosed to you from confidential records which are protected by state law. State law prohibits you from making any further disclosure of this information without the specific written consent of the person to whom it pertains, or as otherwise permitted by law. Any unauthorized further disclosure in violation of state law may result in a fine or usp sentence or both. A general authorization for the release of medical or other information is NOT sufficient authorization for further disc losure. Family History Family Member Name Family Member Gender Family Member Status Date o f Status Description Data Source(s) Unknown Male Problem [facility] ([facility] Unknown Female Problem [facility] ([facility]) Unknown Female Problem [facility] ([facility]) Unknown Male Problem [facility] ([facility] Unknown Male Problem [facility] ([facility]) Encounters Encounter Providers Location Date Indications Data Source(s ) Outpatient Attender: Cordelia Linares/Clint/Dayron/Maggie guerrero 12/28/2020 11:15:00 AM EDT [facility] ([facility] Outpatient Attender: JANESSA OTT [facility] 12/18/2020 02:30:00 PM EDT [facility] ([facility]) Outpatient Attender: Johnathon SALAZAR 12/14/19 12:56:48 PM EDT - 12/13/2020 02:22:00 PM EDT [facility] ([facility] ) Outpatient Attender: JANESSA OTT [facility] 09/13/2020 02:40:00 PM EDT [facility] ([facility]) Outpatient Attender: JANESSA OTT [facility] 09/05/2020 10:30:00 AM EDT [facility] ([facility]) Outpatient Attender: JANESSA OTT [facility] 06/15/2020 08:40:00 AM EDT [facility] ([facility]) Immunizations Vaccine Date Status Description Data Source(s) COVID-19 VACCINE [facility] 06/28/2020 12:00:00 AM EDT completed [facility] Vaccine Series Complete: YESThis Data wa s Submitted to [facility] [employer]. COVID-19 VACCINE Pfizer 06/07/2020 12:00:00 AM EST completed [facility] Vaccine Series Complete: NOThis Data was Submitted to [facility] [employer]. Medications Medication Brand Name Start Date Product Form Dose Route Admi nistrative Instructions Pharmacy Instructions Status Indications Reaction Description Data Source(s) Lidocaine Hydrochloride 40 MG/ML Topical Cream Eq Lido byron Pain Relieving/Max Strength 09/07/2020 12:00:00 AM EDT completed [facility] ([facility]) Fluconazole 150 MG Oral Tablet Fluconazole 09/05/2020 12:00:00 AM EDT completed [facility] ([facility]) Nystatin 763008 UNT/ML / Triamcinolone Acetonide 1 MG/ ML Topical Cream Nystatin-Triamcinolone 09/05/2020 12:00:00 AM EDT completed [facility] ([facility]) Insurance Providers Payer name Policy type / Coverage type Policy ID Covered democrat ID Covered democrat's relationship to jade Policy Jade Plan Information [facility] [id number] SP [id number] BS [facility] 303/803 [id number] SP [id number] FRITO LAY emp [id number] Employee [id number] BCBS [facility] 303/803 [id number] SP [id number] SELF PAY ONLY [id number] SP [id number] [employer]BS B [id number] S IWA [id number] [employer] [facility] U/W Commercial [id number] Self IW [id number] [employer] [facility] U/W Commercial [id number] Self IW [id number] [employer] U/W Commercial [id number] Self IW [id number] [employer] U/W Commercial [id number] Self [id number] [employer] U/W Commercial [id number] Self [id number] [employer] U/W Commercial [id number] Self IW [id number] [place] Commercial [id number] Self I [id number] [facility] U/W Commercial [id number] Self IW [id number] BCBS/Blue Card Commercial [id number] Self [id number] [facility] U/W [employer] [id number] Self [id number] [facility] U/W Commercial [id number] Self [id number] [facility] U/W Commercial [id number] Self [id number] [facility] U/W [employer] [id number] Self BCBS/Blue Card Commercial [id number] Self BS [place] Commercial [id number] Self [employer] P [id number] S [id number] [employer] CLAIMS P [id number] S [id number] [employer] WC [id number] SP [id number] [employer] 303/803 P [id number] S [id number] [employer] [place] PPO 302/307 [id number] SP [id number] BCBS E[employer]IRE [facility] 303/803 [id number] SP [id number] [employer] [place] PPO 302/307 [id number] SP [id number] BCBS [employer] [facility] 303/803 [id number] SP [id number] Problems, Conditions, and Diagnoses No Information Surgeries/Procedures Procedure Description Date Indications Data Source(s) OFFICE OUTPATIENT NEW 20 MINUTES 12/28/2020 12:00:00 A M EDT [facility] ([facility] ) PERIODIC PREVENTIVE MED EST PATIENT 40-64YRS 12:00:00 AM EDT MED[facility] ([facility]) OFFICE OUTPATIENT VISIT 15 MINUTES 09/13/2020 12:00:00 AM EDT [facility] ([facility]) OFFICE OUTPATIENT VISIT 15 MINUTES 09/05/2020 12:00:00 AM EDT [facility] Results ID Date Data Source [id number] 03/03/2021 09:05:00 AM EST [facility] Name Value Range Interpretation Code Description Data Kaila rce(s) Supporting Document(s) SARS-CoV-2 (COVID-19) RNA [Presence] in Respiratory specimen by KIM with probe detection Not Detected [facility] This lab was ordered by [facility] and reported by [employer]. ID Date Data Source [id number] 12/18/2020 03:01:00 PM EDT [facility] ([facility]) Name Value Range Interpretation Code Description Data Kaila rce(s) Supporting Document(s) Laboratory test finding (navigational concept) Laboratory test result [facility] ([facility]) ID Date Data Source [id number] 12/18/2020 03:01:00 PM EDT [facility]) Name Value Range Interpretation Code Description Data Kaila rce(s) Supporting Document(s) Clinical information Laboratory test result Norm al (applies to non-numeric results) [facility] ([facility]) None given Service comment Laboratory test result Normal (a pplies to non-numeric results) [facility] ([facility]) Date of previous PAP smear Laboratory test result Normal (applies to non- numeric results) [facility]) None given Last menstrual period start date Laboratory test result Normal (applies to non-numeric results) [facility] ([facility]) None given Date of previous biopsy Laboratory test result N ormal (applies to non-numeric results) [facility] ([facility]) None given Specimen source [Identifier] in Cervical or vaginal smear or scraping by Cyto stain Laboratory test result Normal (applies to non-numeric results) [facility] ([facility]) Cervix, Endocervix Statement of adequacy [Interpretation] o f Cervical or vaginal smear or scraping by Cyto stain Laboratory test result Normal (applies to non-nu meric results) [facility] ([facility]) Satisfactory for evaluation. Endocervical/transformation zone component present. General categories [Interpretation] of C ervical or vaginal smear or scraping by Cyto stain Laboratory test result Normal (applies to non-numeric results) [facility] ([facility]) Microscopic observation [Identifier] in Cervix by Cyto stain Laboratory test result Normal (applies to non-numeric results) [facility] ([facility]) Negative for intraepithelial lesion or m alignancy. Cytology study comment Cervical or vaginal smear or sc raping Cyto stain Laboratory test result Normal (applies to non-numeric results) [facility] ([facility]) This Pap test has been evaluated with Dexcom assisted technology. Per Assessment Nurse who read Cyto stain of Cervical or vaginal smear or scraping Laboratory test result Normal (applies to non-numeric results) [facility] ([facility]) , [place](ASCP) CT screening location: [facility] [employer] [place] [address]. Microorganism identified in Cervical or vaginal smear or scraping by Cyto stain Laboratory test result Normal (applies to non-numeric results) [facility] ([facility]) Per Assessment Nurse who read Cyto stain of Cervical or vaginal smear or scraping Laboratory test result Normal (applies to non-numeric results) [facility] ([facility]) Pathologist who read Cyto stain of Cervical or vaginal smear or scraping Laboratory test result Normal (applies to non-numeric results) [facility] ([facility]) Comment Laboratory test result [facility] ([facility]) EXPLANATORY NOTE: The Pap is a screening test for cervical cancer. It is not a diagnostic test and is subject to false negative and false positive results. It is most reliable when a satisfactory sample, regularly obtained, is submitted with relevant clinical findings and history, and when the Pap result is evaluated along with historic and current clinical information. Chlamydia trachomatis rRNA [Presence] in Unspecified specimen by Probe and target amplification method Laboratory test result Normal (a pplies to non- numeric results) [facility] ([facility]) Human papilloma virus E6+E7 mRNA [Presen ce] in Cervix by Probe and target amplification method Laboratory test result Normal (applies to non-numeric results) [facility]) Methodology: Vp Integration-Mediated Ampl ification This assay detects E6/E7 viral messenger RNA (mRNA) from 14 high-risk HPV types (16,18,31,33,35,39,45,51,52,56,58,59,66,68). The analytical performance characteristics of this assay have been determined by [employer]. The modifications have not been cleared or approved by the FDA. This assay has been validated pursuant to the CLIA regulations and is used for clinical purposes. For additional information, please refer to http://[employer]/faq/MZI119s1 (This link if provided for information/ educational purposes only.) Neisseria gonorrhoeae rRNA [Presence] in Unspecified specimen by Probe and target amplification method Laboratory test result Normal (a pplies to non- numeric results) [facility] ([facility]) Comment Laboratory test result [facility] ([facility]) The analytical performance characteristi cs of this assay, when used to test SurePath(TM) specimens have been determined by [employer]. The modifications have not been cleared or approved by the FDA. This assay has been validated pursuant to the CLIA regulations and is used for clinical purposes. For additional information, please refer to [email or web address]://[email or web address]/faq/ZRP255 (This link is being provided for informa tion/ educational purposes only.) ID Date Data Source [id number] 09/07/2020 06:55:00 PM EDT [facility] ([facility]) Name Value Range Interpretation Code Description Data Kaila rce(s) Supporting Document(s) Reflex Urine Culture Laboratory test result Norm al (applies to non-numeric results) [facility] ([facility]) FULL REPORT IN LAB NOTES (eCW and Med[facility] ). NO GROWTH CLINICAL SIGNIFICANCE 1 ORGANISM ID Date Data Source [id number] 09/07/2020 06:55:00 PM EDT [facility]) Name Value Range Interpretation Code Description Data Kaila rce(s) Supporting Document(s) Appearance, Urine RFX Laboratory test result Nor mal (applies to non-numeric results) [facility]) Color, Urine RFX Laboratory test result Normal ( applies to non-numeric results) [facility] ([facility]) PH,Urine RFX 5.0 units 5.0-9.0 Normal (applies to non-numeric res ults) [facility] ([facility]) Protein, Urine Auto RFX Laboratory test result N ormal (applies to non-numeric results) [facility] ([facility]) Specific [place] Ur Auto RFX 1.016 1.002-1.035 Nor mal (applies to non-numeric results) [facility]) Glucose, Urine (Ua) Auto RFX Laboratory test result Normal (applies to non- numeric results) [facility] ([facility]) Ketone, Urine Auto RFX Laboratory test result No rmal (applies to non-numeric results) [facility] ([facility]) Urobilinogen, Urine Auto RFX 0.2 mg/dL 0.0-2.0 Nor mal (applies to non-numeric results) [facility]) Nitrite, Urine Auto RFX Laboratory test result N ormal (applies to non-numeric results) [facility] ([facility]) Bilirubin, Urine Auto RFX Laboratory test result Normal (applies to non- numeric results) [facility] ([facility]) Leukocyte Esterase Ur Auto RFX Laboratory test result Abov e high normal [facility] ([facility]) Blood, Urine Blood RFX Laboratory test result Above high n ormal [facility] ([facility]) WBC, Urine Auto RFX 6 /HPF 0-3 Above high normal [facility] ([facility]) Bacteria, Urine Auto RFX Laboratory test result Above high normal [facility] ([facility]) RBC, Urine Auto RFX 2 /HPF 0-3 Normal (applies to non-nume chrissy results) [facility]) Squam Epithelial Cell Ur Aurfx 1 /HPF 0-6 N ormal (applies to non-numeric results) [facility] ([facility]) Hyaline Cast, Urine Auto RFX 0 /LPF 0-1 Normal (appl ies to non-numeric results) [facility] ([facility]) ID Date Data Source [id number] 09/07/2020 06:53:00 PM EDT [facility] ([facility]) Name Value Range Interpretation Code Description Data Kaila rce(s) Supporting Document(s) Laboratory test finding (navigational concept) Laboratory test r esult Normal (applies to non-numeric results) [facility] ([facility]) Performed at: [facility] [id number] [employer] Installer: Isabel Vasquez MD, Phone: [phone] Laboratory test finding (navigational concept) Laboratory test r esult Normal (applies to non-numeric results) [facility] ([facility]) ID Date Data Source [id number] 09/07/2020 06:53:00 PM EDT [facility] ([facility]) Name Value Range Interpretation Code Description Data Kaila rce(s) Supporting Document(s) Trichomonas vaginalis DNA [Presence] in Unspecified specimen by Probe and target amplification method Laboratory test result Normal (applies to non-numeric results) [facility] ([facility]) A negative test result does not exclude the possibility of infection because test results may be affected by improper specimen collection, technical error, sample mix-up, or because the number of organisms in the sample is below the limit of detection of the test. ID Date Data Source [id number] 09/07/2020 06:52:00 PM EDT [facility] ([facility]) Name Value Range Interpretation Code Description Data Kaila rce(s) Supporting Document(s) Hepatitis C virus Ab [Units/volume] in Serum by Immuno assay Laboratory test result Normal (applies to non-numeric results) [facility]) Hepatitis B virus surface Ag [Presence] in Serum or Pl asma by Immunoassay Laboratory test result Normal (applies to non-numeric results) [facility] ([facility]) Hepatitis B virus surface Ab [Presence] in Serum by Im munoassay Laboratory test result Normal (applies to non-numeric results) [facility]) Reagin Ab [Presence] in Serum by RPR Laboratory test result Normal (applies to non-numeric results) [facility] ([facility]) HIV 1+2 Ab [Presence] in Serum Laboratory test result Normal (applies to non- numeric results) [facility] ([facility]) <content>This assay was performed utiliz ing a chemiluminescent</content>
<content>principle technique for the simultaneous qualitative</content>
<content>detection of HIV-1 p24 antigen & antibodies to HIV-1</content>
<content>(including group O) & HIV-2 using the Siemens Centaur XP</content>
<content>system.</content>
<content>The estimated 95% confidence interval for sensitivity of</content>
<content>this antigen/antibody combination assay for HIV-1&2</content>
<content>antibodies is 99.7-100% and HIV p24 antigen is 89.4-99.9%.</content>
<content>The estimated 95% confidence interval for specificity of</content>
<content>this antigen/antibody combination in low risk populations is</content>
<content>99.6-99.8%.</content>
<content></content> ID Date Data Source [id number] 09/07/2020 06:51:00 PM EDT [facility] ([facility]) Name Value Range Interpretation Code Description Data Kaila rce(s) Supporting Document(s) Laboratory test finding (navigational concept) Laboratory test r esult Normal (applies to non-numeric results) [facility] ([facility]) This test was developed and its performa nce characteristics determined by [employer]. It has not been cleared or approved by the U.S. Food and Drug Administration. The FDA has determined that such clearance or approval is not necessary. This test is used for clinical purposes. It should not be regarded as investigational or research. Performed at: [address] [id number] [employer] Installer: Ann Romero MD, Phone: [phone] Laboratory test finding (navigational concept) Laboratory test r esult Normal (applies to non-numeric results) [facility] ([facility]) ID Date Data Source [id number] 09/07/2020 06:22:00 PM EDT [facility] ([facility]) Name Value Range Interpretation Code Description Data Kaila rce(s) Supporting Document(s) Virus identified in Stool by Culture Laboratory test result [facility] ([facility]) Positive for Herpes simplex virus type-1 . Typing was confirmed by monoclonal antibody microscopic immunofluorescence. Performed at: [address] [id number] [employer] Installer: Ann Romero MD, Phone: [phone] ID Date Data Source [id number] 09/07/2020 06:22:00 PM EDT [facility] ([facility]) Name Value Range Interpretation Code Description Data Kaila rce(s) Supporting Document(s) Wet Prep Laboratory test result [facility] ([facility]) Reference Interval: Negative for Clue Ce lls, Trichomonas vaginalis or Yeast like organisms. WET PREP RESULT MANY EPITHELIAL CELLS PRESENT MANY LONG RODS PRESENT FEW WBC ID Date Data Source [id number] 03/07/2020 02:00:00 PM EST [facility] ([facility]) Name Value Range Interpretation Code Description Data Kaila rce(s) Supporting Document(s) Laboratory test finding (navigational concept) Laboratory test result [facility] ([facility]) Test: COVID-19 Nasal/Naspharynx Result: NOT DETECTED Reference Units: Not detected Note: Please consider re-collection of a new specimen, if clinically indicated. Note: The COVID-19 assay is under Emergency Use Authorization(EUA) by the U.S. Food and Drug Administration. [facility] is designated as a high complexity laboratory by the Clinical Laboratory Improvement Amendments of 1988(CLIA) and is qualified to perform this test. ASSAY INFORMATION: Real Time RT-PCR ID Date Data Source [id number] 03/07/2020 12:00:[address] [facility] Name Value Range Interpretation Code Description Data Kaila rce(s) Supporting Document(s) 2019-nCoV RNA XXX KIM+probe-Imp NYDEOH This lab was ordered by [facility] and reported by [employer] Procedure Social History Code Duration Value Status Description Data Source(s ) Smoking 12/18/2020 12:00:00 AM EDT Patient has never smoked co mpleted Patient has never smoked [facility] ([facility]) Vital Signs ID Date Data Source UNK Name Value Range Interpretation Code Description Data Source(s) Systolic blood pressure 136 mm[Hg] 136 mm[Hg] [facility] Diastolic blood pressure 84 mm[Hg] 84 mm[Hg] [facility] ([facility]) Body temperature 98.2 [degF] 98.2 [degF] [facility]) Body height 66 [in_i] 66 [in_i] [facility] ([facility]) 5'6" Body weight 200.25 [lb_av] 200.25 [lb_av] [facility] ([facility]) Body mass index (BMI) [Ratio] 32.3 kg/m2 32.3 k g/m2 [facility] ([facility]) [place] body weight 130 [lb_av] 130 [lb_av] [facility] ([facility]) Body weight 90.833 kg 90.833 kg [facility] ([facility] ) Body surface area Derived from formula 2.00 m2 2.00 m2 [facility], ) Body weight 200.38 [lb_av] 200.38 [lb_av] [facility] ([facility]) Body mass index (BMI) [Ratio] 33.7 kg/m2 33.7 k g/m2 [facility]) Oxygen saturation in Arterial blood by Pulse oximetry 98 % 98 % [facility]) [place] body weight 120 [lb_av] 120 [lb_av] [facility] ([facility]) Heart rate 76 /min 76 /min [facility]) Respiratory rate 14 /min 14 /min [facility] ( [facility]) Body temperature 98.0 [degF] 98.0 [degF] [facility] ([facility]) Systolic blood pressure 138 mm[Hg] 138 mm[Hg] [facility] ([facility]) Diastolic blood pressure 88 mm[Hg] 88 mm[Hg] [facility]) Body height 64.7 [in_i] 64.7 [in_i] [facility] ([facility]) 5'4.70" Systolic blood pressure 110 mm[Hg] 110 mm[Hg] [facility] ([facility]) Body height 64.7 [in_i] 64.7 [in_i] [facility] ([facility]) 5'4.70" Body weight 193.00 [lb_av] 193.00 [lb_av] [facility] ([facility]) Diastolic blood pressure 74 mm[Hg] 74 mm[Hg] [facility] ([facility]) Body mass index (BMI) [Ratio] 32.4 kg/m2 32.4 k g/m2 [facility] ([facility]) Heart rate 64 /min 64 /min [facility]) Respiratory rate 20 /min 20 /min [facility] ( [facility]) Body temperature 98.2 [degF] 98.2 [degF] [facility]) Oxygen saturation in Arterial blood by Pulse oximetry 97 % 97 % [facility] ([facility]) [place] body weight 120 [lb_av] 120 [lb_av] [facility] ([facility]) Systolic blood pressure 132 mm[Hg] 132 mm[Hg] [facility] ([facility]) Diastolic blood pressure 84 mm[Hg] 84 mm[Hg] [facility] ([facility]) Body height 64.7 [in_i] 64.7 [in_i] [facility] ([facility]) 5'70" Body weight 192.00 [lb_av] 192.00 [lb_av] [facility] ([facility]) Body mass index (BMI) [Ratio] 32.2 kg/m2 32.2 k g/m2 [facility] ([facility]) Heart rate 82 /min 82 /min [facility] ([facility]) Respiratory rate 20 /min 20 /min [facility] ( [facility]) Body temperature 98.7 [degF] 98.7 [degF] [facility]) Oxygen saturation in Arterial blood by Pulse oximetry 99 % 99 % [facility] ([facility]) [place] body weight 120 [lb_av] 120 [lb_av] [facility] ([facility]) Diastolic blood pressure 82 mm[Hg] 82 mm[Hg] [facility] ([facility]) Body height 64.7 [in_i] 64.7 [in_i] [facility] ([facility]) 70" Body weight 187.50 [lb_av] 187.50 [lb_av] [facility] ([facility]) Body mass index (BMI) [Ratio] 31.5 kg/m2 31.5 k g/m2 [facility] ([facility]) Heart rate 70 /min 70 /min [facility] ([facility]) Systolic blood pressure 128 mm[Hg] 128 mm[Hg] [facility] ([facility]) [place] body weight 120 [lb_av] 120 [lb_av] [facility] ([facility]) Respiratory rate 16 /min 16 /min [facility] ( [facility]) Body temperature 97.9 [degF] 97.9 [degF] [facility] ([facility]) Oxygen saturation in Arterial blood by Pulse oximetry 98 % 98 % [facility] ([facility]) Respiratory rate 14 /min 14 /min [facility] ( [facility]) Body weight 78.926 kg 78.926 kg [facility] ([facility]) Body temperature 97.2 [degF] 97.2 [degF] [facility] ([facility]) Body height 66 [in_i] 66 [in_i] [facility] ([facility]) 5'6" Body weight 174.00 [lb_av] 174.00 [lb_av] [facility] ([facility]) Body mass index (BMI) [Ratio] 28.1 kg/m2 28.1 k g/m2 [facility] ([facility]) [place] body weight 130 [lb_av] 130 [lb_av] [facility] ([facility]) Body mass index (BMI) [Ratio] 28.1 kg/m2 28.1 k g/m2 [facility] ([facility]) [place] body weight 130 [lb_av] 130 [lb_av] [facility] Body weight 78.926 kg 78.926 kg [facility] ([facility]) Body surface area Derived from formula 1.88 m2 1.88 m2 [facility] ([facility]) Systolic blood pressure 136 mm[Hg] 136 mm[Hg] [facility] ([facility]) Diastolic blood pressure 84 mm[Hg] 84 mm[Hg] [facility] Heart rate 80 /min 80 /min [facility]) Respiratory rate 14 /min 14 /min [facility] ( [facility]) Body temperature 97.2 [degF] 97.2 [degF] [facility] ([facility]) Body height 66 [in_i] 66 [in_i] [facility] ([facility]) 5'6" Body weight 174.00 [lb_av] 174.00 [lb_av] [facility] ([facility])
[2021-03-08] MEDS ORDERED: propofoL 200 MG/20 ML VIAL As Ordered ONE ×2 (10:11→10:14)
[2021-03-08] MEDS ORDERED: LIDOCAINE 2% 100MG/5ML SDV (FOR ANES.) As Ordered ONE (10:11)
--- NOTE | 2021-03-08 10:22 | ROOR ---
Patient Name: Addie Branch Procedure Date: 03/08/2021 10:03 AM Date of : 1970 Age: 50 Room: [facility] Gender: Female Note Status: Finalized Procedure: Colonoscopy Indications: Screening for colorectal malignant neoplasm Providers: Juma Epperson Jr, MD Referring MD: Latasha OTT DO Requesting Provider: Medicines: Propofol per Anesthesia Complications: No immediate complications. Procedure: Pre-Anesthesia Assessment: - Prior to the procedure, a History and Physical was performed, and patient medications and allergies were reviewed. The patient is competent. The risks and benefits of the procedure and the sedation options and risks were discussed with the patient. All questions were answered and informed consent was obtained. Patient identification and proposed procedure were verified by the physician and the nurse in the pre-procedure area and in the procedure room. Mental Status Examination: alert and oriented. Airway Examination: normal oropharyngeal airway and neck mobility. Respiratory Examination: clear to auscultation. CV Examination: normal. ASA Grade Assessment: II - A patient with mild systemic disease. After reviewing the risks and benefits, the patient was deemed in satisfactory condition to undergo the procedure. The anesthesia plan was to use moderate sedation / analgesia (conscious sedation). Immediately prior to administration of medications, the patient was re-assessed for adequacy to receive sedatives. The heart rate, respiratory rate, oxygen saturations, blood pressure, adequacy of pulmonary ventilation, and response to care were monitored throughout the procedure. The physical status of the patient was re-assessed after the procedure. The Colonoscope was introduced through the anus and advanced to the cecum, identified by appendiceal orifice and ileocecal valve. The colonoscopy was performed without difficulty. The patient tolerated the procedure well. The quality of the bowel preparation was adequate. Findings: The rectum, recto-sigmoid colon, sigmoid colon, descending colon, transverse colon, ascending colon, cecum, appendiceal orifice and ileocecal valve appeared normal. Impression: - The rectum, recto-sigmoid colon, sigmoid colon, descending colon, transverse colon, ascending colon, cecum, appendiceal orifice and ileocecal valve are normal. - No specimens collected. Recommendation: - Discharge patient to home (ambulatory). - Repeat colonoscopy in 10 years for screening purposes. Procedure Code(s): --- Professional --- 39332, Colonoscopy, flexible; diagnostic, including collection of specimen(s) by brushing or washing, when performed (separate procedure) Diagnosis Code(s): --- Professional --- Z12.11, Encounter for screening for malignant neoplasm of colon CPT copyright 2019 [employer]. All rights reserved. The codes documented in this report are preliminary and upon portfolio administrator review may be revised to meet current compliance requirements. Juma Epperson MD Juma Epperson Jr, MD 03/08/2021 10:21:38 AM Electronically signed by Juma Epperson Jr, MD Number of Addenda: 0 Note Initiated On: 03/08/2021 10:03 AM Estimated Blood Loss: Estimated blood loss: none.
[2021-03-08 10:50] VITALS: BP 135/65
== END 2021-03-08 11:00 | disposition home or self-care (01) ==
LOC: M OPP 08:23
PROVIDERS: ATTEND Surgery
DX: Z12.11 Encounter for screening for malignant neoplasm of colon (principal); K21.9 Gastro-esophageal reflux disease without esophagitis

== ENCOUNTER 2022-11-02 02:57 | Emergency (ER) | payer BC ==
[~2022-11-02] VITALS: Ht 167.6 cm; Wt 95.5 kg
[~2022-11-02 02:57] MED LIST changes: -FLUC150T PO; +FLUC150T9 PO; -NS 1,000 ML IV ONE
[2022-11-02 03:08] VITALS: BP 103/67; TEMP 98.1; O2SAT 96
[2022-11-02] MEDS ORDERED: HYDR200T46 PO (03:10)
== END 2022-11-02 04:17 | disposition left against medical advice (07) ==
LOC: M ED 02:57
DX: Z53.21 Procedure and treatment not carried out due to patient leaving prior to being seen by health care provider (principal)